=== PATIENT | male | born 1985 ===

== ENCOUNTER 2022-03-20 03:26 | Emergency (ER) | payer SELFPAY ==
[~2022-03-20] VITALS: Ht 182.9 cm; Wt 120.0 kg
[2022-03-20] MEDS ORDERED: Robaxin750 MG PO (04:55)
== END 2022-03-20 05:10 | disposition home or self-care (01) ==
LOC: ER 03:26
DX: S39.012A Strain of muscle, fascia and tendon of lower back, initial encounter (principal); X50.0XXA Overexertion from strenuous movement or load, initial encounter
CPT/HCPCS: A9270; J1885